=== PATIENT | male | born 1985 | race Caucasian/White ===

== ENCOUNTER 2020-11-29 13:08 | Outpatient (REF) | payer OTHER, SELFPAY ==
[2020-11-30 07:44] LABS: SARS COV2 PCR INHOUSE POSITIVE (Negative)
== END 2020-11-29 13:09 | disposition home or self-care (01) ==
LOC: HO.LAB 13:08
PROVIDERS: Visit Provider Internal Medicine
DX: Z20.822 Contact with and (suspected) exposure to COVID-19 (principal)
CPT/HCPCS: C9803; U0003

== ENCOUNTER 2022-04-29 19:52 | Emergency (ER) | payer OTHER, SELFPAY ==
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
[2022-04-29 20:08] VITALS: BP 137/53; BP 137/83; PULSE 81; RESP 16; TEMP 37; O2SAT 99; BMI 28.7
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
[2022-04-29 23:50] VITALS: BP 139/88; PULSE 92; RESP 20; TEMP 37
[2022-04-30] MEDS: oxyCODONE HCl Immed Release 5 MG TABLET 10 MG PO (00:29)
== END 2022-04-30 00:41 | disposition home or self-care (01) ==
PROVIDERS: Emergency Provider Emergency Medicine
DX: S59.911A Unspecified injury of right forearm, initial encounter (principal); M79.631 Pain in right forearm; V19.40XA Pedal cycle driver injured in collision with unspecified motor vehicles in traffic accident, initial encounter; Y93.9 Activity, unspecified; Y92.9 Unspecified place or not applicable; Y99.9 Unspecified external cause status; Z79.899 Other long term (current) drug therapy
CPT/HCPCS: 29105; 73030; 73080; 73100; 99283

== ENCOUNTER 2024-03-21 10:29 | Outpatient (REF) | payer MEDICAID, SELFPAY ==
[2024-03-21 11:24] LABS: MANUAL DIFF FLAG NO
[2024-03-21 11:27] LABS: Basophils Percent Auto 0.6 % (0-2); Eosinophils Absolute Auto 0.1 X10*3/uL (0.0-0.4); Eosinophils Percent Auto 0.9 % (0-4); Hematocrit 42.7 % (42.0-52.0); Hemoglobin 14.6 g/dl (14.0-18.0); Imm Gran Abs Auto 0.03 X10*3/uL (0.00-0.03); Imm Gran Pct Auto 0.5 % (0.0-0.4); Lymphocytes Absolute Auto 1.6 X10*3/uL (1.2-4.9); Lymphocytes Percent Auto 24.2 % (20-40); Mean Corpuscular HGB Conc 34.2 g/dl (31.0-36.0); Mean Corpuscular Hemoglobin 30.2 pg (27.0-33.0); Mean Corpuscular Volume 88.2 fL (80.0-98.0); Mean Platelet Volume 10.4 fL (9.4-12.4); Monocytes Absolute Auto 0.5 X10*3/uL (0.1-1.2); Monocytes Percent Auto 7.6 % (2-11); Neutrophils Absolute Auto 4.3 x10*3/uL (2.0-8.3); Neutrophils Percent Auto 66.2 % (45-73); Platelet Count 272 X10*3/uL (160-400); Red Blood Count 4.84 X10*6/uL (4.60-5.80); Red Cell Distribution Width 12.7 % (11.0-16.0); White Blood Count 6.5 X10*3/uL (4.8-10.8)
[2024-03-21 11:35] LABS: Estimated Average Glucose 111 mg/dL; Hemoglobin A1c % 5.5 % (<6.0)
[2024-03-21 11:55] LABS: Alanine Aminotransferase 73 U/L (0-40); Albumin Level 4.5 g/dL (3.5-5.0); Alkaline Phosphatase 70 U/L (39-117); Anion Gap 12 (12-20); Aspartate Amino Transferase 51 U/L (5-37); Bilirubin Total 0.4 mg/dL (0.0-1.0); Blood Urea Nitrogen 14 mg/dL (9-16); Calcium 9.3 mg/dL (8.4-10.2); Carbon Dioxide 22 mmol/L (22-29); Chloride 108 mmol/L (96-108); Estimated Glomerular Filt Rate > 60; Glucose Random 105 mg/dL (60-115); Potassium 4.2 mmol/L (3.3-5.1); Sodium 138 mmol/L (135-145); Total Protein 7.6 g/dL (6.5-8.0)
[2024-03-21 12:12] LABS: TSH reflex Free T4 1.06 uIU/mL (0.32-4.0)
[2024-03-21 12:19] LABS: Vitamin B12 367 pg/mL (200-900)
[2024-03-22 08:29] LABS: Syphilis Screen Nonreactive (Nonreactive)
[2024-03-22 08:46] LABS: HBS Num1 12.54 mIU/mL (0-7.99); HBc Num1 0.14 S/CO (0.00-0.79); HBsAGNum1 0.39 S/CO (0.00-0.99); HIV AB/AG Nonreactive (Nonreactive); HIV Num 1 0.09 S/CO (0.00-0.99); Hepatitis B Core Antibody Nonreactive (Nonreactive); Hepatitis B Surface Antigen Negative (Negative); ~HepC Num1 12.26 S/CO (0.00-0.79); ~Hepatitis B Surface Antibody REACTIVE (Nonreactive); ~Hepatitis C Antibody Reactive (Nonreactive)
[2024-03-24 05:54] LABS: TS Negative Control Passed; TS Panel A 0; TS Panel B 1; TS Positive Control Passed; TSpotTB Negative (Negative)
[2024-03-29 11:54] LABS: HCV Log PCR <1.18 NOT DETECTED Log IU/mL (NOT DETECTED); HepC Viral Load <15 NOT DETECTED IU/mL (NOT DETECTED)
== END 2024-03-21 10:30 | disposition home or self-care (01) ==
LOC: HO.HHCL 10:29
PROVIDERS: Visit Provider Emergency Medicine
DX: R76.8 Other specified abnormal immunological findings in serum (principal); Z13.1 Encounter for screening for diabetes mellitus
CPT/HCPCS: 36415; 80053; 82607; 83036; 84443; 85025; 86481; 86704; 86706; 86780; 86803; 87338; 87340; 87389; 87522

== ENCOUNTER 2024-10-11 10:42 | Outpatient (REF) | payer MEDICAID, SELFPAY ==
--- OUTSIDE RECORDS SUMMARY | 2024-10-11 12:32 | XMS_ITS | Encounter Summary ---
Author Organization [email or web address] Address [address] [place] [address] Care Team Providers Care Wastewater Analyst Lab Analyst Name Role Phone Unavailable Primary Care Provider Unavailabl e Reason for Visit * Reason Onset Date Comments Chart prep 10/09/2024 Encounter Details Date Type Department Care Team (Late st Contact Info) Description 10/09/2024 Telephone [facility] [address] [place] [address] Sherin Baxter MA Chart prep Social History Tobacco Use Types Packs/Day Years Used Date Smoking Tobacco: Never Smokeless Tobacco: Never Housing Stability Answer Date Recorded What is your housing situation today? I have bishnu veloz 09/28/[address] you li ve. Do you have problems with any of the following? None of the above 09/28/2024 Food Insecurity Answer Date Recorded Within the past 12 months, y ou worried that your food would run out before you got money to buy more: Never True 09/28/2024 Within the past 12 months,th e food you bought just didn't last and you didn't have enough money to get more: Never True Transportation Answer Date Recorded In the past 12 months, has l ack of transportation kept you from medical appts, meetings, work or from getting things needed for daily living? No 09/28/2024 Utilities Answer Date Recorded In the past 12 months, has t he electric, gas, oil or water company threatened to shut off services in your home? No 09/28/2024 Internet Access Answer Date Recorded Internet Access Q1 Yes 09/28/2024 Internet Access Q2 Not on file 09/28/2024 Sex and Gender Information Value Date Recorded Sex Assigned at Male 06/29/2022 10:35 AM EDT Legal Sex Male 10:35 AM EDT Gender Identity Choose not to disclose 10:35 AM EDT Sexual Orientation Choose not to disclose 2021 10:35 AM EDT documented as of this encounter Miscellaneous Notes * Telephone Encounter - Sherin Baxter MA - 10/09/2024 3:37 PM EST Chart Prep Labs: done Images: done Vaccines due: yes Referrals: N/A Screenings: Up to date Overdue care gaps: PHQ-9 documented in this encounter Plan of Treatment Upcoming Encounters Date Type Department Care Team (Late st Contact Info) Description 11/29/2024 3:15 PM EDT Office Visit [facility] [address] [place], [place] [phone] Bernadette Noguera MD [address] [place], [place] [phone] documented as of this encounter Visit Diagnoses Not on filedocumented in this encounter
--- OUTSIDE RECORDS SUMMARY | 2024-10-11 12:32 | XMS_ITS | Encounter Summary ---
Author Organization [employer] Address [address] [place] [address] Care Team Providers Care Aluminum Siding Mechanic Name Role Phone Bernadette Noguera MD Primary Care Provider + Encounter Details Date Type Department Care Team (Latest Contact Info) Description 10/11/2024 Travel Social History Tobacco Use Types Packs/Day Years Used Date Smoking Tobacco: Never Smokeless Tobacco: Never Housing Stability Answer Date Recorded What is your housing situation today? I have bishnurian veloz 09/28/[address] you [...] t he electric, gas, oil or water [employer] threatened to shut off services in your home? No 09/28/2024 Depression Answer Date Recorded Patient Health Questionnaire-2 Score 0 10/11/2024 Internet Access Answer Date Recorded Internet Access Q1 Yes 09/28/2024 Internet Access Q2 Not on file 09/28/2024 Sex and Gender Information Value Date Recorded Sex Assigned at Male 06/29/2022 10:35 AM EDT Legal Sex Male 10:35 AM EDT Gender Identity Choose not to disclose 10:35 AM EDT Sexual Orientation Choose not to disclose 2021 10:35 AM EDT documented as of this encounter Plan of Treatment Upcoming Encounters Date Type Department Care Team (Late st Contact Info) Description 11/29/2024 3:15 PM EDT Office Visit [facility] [address] [place] [address] Bernadette Noguera MD [address] [place], [place] [phone] documented as of this encounter Visit Diagnoses Not on filedocumented in this encounter Care Teams Aluminum Siding Mechanic Relationship Specialty Start Date End Date Bernadette Noguera MD [address] [place] [phone] PCP - General Internal Medicine 10/11/24 documented as of this encounter
--- OUTSIDE RECORDS SUMMARY | 2024-10-11 12:32 | XMS_ITS | Encounter Summary ---
Author Organization [employer] Address [address] [place] [address] Care Team Providers Care Shoemaker Apprentice Name Role Phone Bernadette Noguera MD Primary Care Provider + Reason for Visit * Reason Comments new patient appointment Encounter Details Date Type Department Care Team (Late st Contact Info) Description 10/11/2024 9:30 AM EST Office Visit [facility] [address] [place], [place] [phone] Bernadette Noguera MD [address] [place], [place] [phone] History of hepatitis C virus infection (Primary Dx); Uncomplicated opioid dependence (CMS/HCC); Elevated blood pressure reading; Class 1 obesity due to excess calories without serious comorbidity with body mass index (BMI) of 34.0 to 34.9 in adult; Dietary counseling; Exercise counseling Social History Tobacco Use Types Packs/Day Years Used Date Smoking Tobacco: Never Smokeless Tobacco: Never Housing Stability Answer Date Recorded What is your housing situation today? I have bishnu roselia 09/28/[address] you li [...] the past 12 months, has t he [employer], [employer], oil or water [employer] threatened to shut off services in your [...] AM EDT documented as of this encounter Last Filed Vital Signs Vital Sign Reading Time Taken Comments Blood Pressure 142/80 10/11/2024 9:38 AM EST Pulse 80 10/11/2024 9:38 AM EST Temperature 36.3 ??C (97.4 ??F) 10/11/2024 9:38 AM ES T Respiratory Rate 18 10/11/2024 9:38 AM EST Oxygen Saturation - - Inhaled Oxygen Concentration - - Weight 106 kg (234 lb 4 oz) 10/11/2024 9:[address] Height 176.2 cm (5' 9.38 ) 10/11/2024 9:38 AM ES T Body Mass Index 34.21 10/11/2024 9:38 AM EST documented in this encounter Plan of Treatment Upcoming Encounters Date Type Department Care Team (Late st Contact Info) Description 11/29/2024 3:15 PM EDT Office Visit [facility] [address] [place] [address] Bernadette Noguera MD [address] [place] [address] Scheduled Orders Name Type Priority Associated Diagnoses Orde r Schedule Hepatitis C Viral RNA, Quantitative, Real-Time PCR Lab Routine History of hepatitis C virus infection Expected: 10/11/2024 (Approximate), Expires: 10/11/2025 T-SPOT??.TB Lab Routine Uncomplicated opioid dependence (CMS/HCC) Expected: 10/11/2024 (Approximate), Expires: 10/11/2025 Hemoglobin A1c Lab Routine Class 1 obesity due to excess calories without serious comorbidity with body mass index (BMI) of 34.0 to 34.9 in adult Expected: 10/11/2024 (Approximate), Expires: 10/11/2025 Lipid Panel with Reflex to Direct LDL Lab Routine Class 1 obesity due to excess calories without serious comorbidity with body mass index (BMI) of 34.0 to 34.9 in adult Expected: 10/11/2024 (Approximate), Expires: 10/11/2025 documented as of this encounter Visit Diagnoses Diagnosis History of hepatitis C virus infection- Primary Uncomplicated opioid dependence (CMS/HCC) Elevated blood pressure reading Elevated blood pressure reading without diagnosis of hypertension Class 1 obesity due to excess calories without serious comorbidity with body mass index (BMI) of 34.0 to 34.9 in adult Dietary counseling Dietary surveillance and counseling Exercise counseling documented in this encounter Care Teams Shoemaker Apprentice Relationship Specialty Start Date End Date Bernadette Noguera MD [address] [place] [phone] PCP - General Internal Medicine 10/11/24 documented as of this encounter
--- OUTSIDE RECORDS SUMMARY | 2024-10-11 12:32 | XMS_ITS | Encounter Summary ---
Author Organization [employer] Address [address] [facility] 7t [place] [address] Care Team Providers Care Data Control Clerk Supervisor Name Role Phone Unavailable Primary Care Provider Unavailabl e Reason for Visit * Reason Comments Pre-visit Planning SDOH screening negat alissa and tobacco screening negative Encounter Details Date Type Department Care Team (Late st Contact Info) Description 09/28/2024 Patient Outreach [facility] [address] [place] [address] Bernadette Noguera MD [address] [place] [address] Pre-visit Planning (SDOH screening negative and tobacco screening negative) Social History Tobacco Use Types Packs/Day Years [...] AM EDT documented as of this encounter Progress Notes * Lula Dhaliwal - 09/28/2024 11:35 AM EST CC Lula placed successful outbound call to patient for pre-visit planning. Patient name and confirmed. Patient confirms appt date and time, and has transportation. Biggest concern for appointment at this time is none Patient advised to bring to appointment a photo id and insurance card. Appropriate screenings completed in anticipation of appointment. documented in this encounter Plan of Treatment Upcoming Encounters Date Type Department Care Team (Late st Contact Info) Description 11/29/2024 3:15 PM EDT Office Visit [facility] [address] [place] [address] Bernadette Noguera MD [address] [place] [address] documented as of this encounter Visit Diagnoses Not on filedocumented in this encounter
--- OUTSIDE RECORDS SUMMARY | 2024-10-11 12:32 | XMS_ITS | Encounter Summary ---
Author Organization [employer] Address 75 [facility] 7t [place] [address] Care Team Providers Care Inspector Multifocal Lens Name Role Phone Bernadette Noguera MD Primary Care Provider + Reason for Visit * Reason Comments Med Change Request Encounter Details Date Type Department Care Team (Late st Contact Info) Description 03/21/2024 Refill [facility] [address] [place] [address] [phone] Gerard Spence MD [address] [place], [place] [phone] Social History Tobacco Use Types Packs/Day Years Used Date Smoking Tobacco: Never Smokeless Tobacco: Never Sex and Gender Information Value Date Recorded Sex Assigned at Male 06/29/2022 10:35 AM EDT Legal Sex Male 10:35 AM EDT Gender Identity Choose not to disclose 10:35 AM EDT Sexual Orientation Choose not to disclose 2021 10:35 AM EDT documented as of this encounter Miscellaneous Notes * Telephone Encounter - Coni Sharpe RN - 03/23/2024 10:39 AM EDT Discontinued by Provider- sent to [facility] instead documented in this encounter Plan of Treatment Upcoming Encounters Date Type Department Care Team (Late st Contact Info) Description 11/29/2024 3:15 PM EDT Office Visit [facility] [address] [place] [address] [phone] Bernadette Noguera MD [address] [place], [place] [phone] documented as of this encounter Visit Diagnoses Not on filedocumented in this encounter Care Teams Inspector Multifocal Lens Relationship Specialty Start Date End Date Bernadette Noguera MD [address] [place] [phone] PCP - General Internal Medicine 10/11/24 documented as of this encounter
--- OUTSIDE RECORDS SUMMARY | 2024-10-11 12:32 | XMS_ITS | Clinical Summary ---
Author Organization [facility] Address [address] [place] [address] Phone Care Team Providers Care Pca Name Role Phone Physician, No Pcp Primary Care Provider Unavaila ble Allergies No known active allergies Encounters Date Type Department Care Team Description 08/27/2024 3:36 PM EST - 08/27/2024 7:04 PM EST Emergency [facility] Emergency [address] [place] [address] Discharge Disposition: Left Against Medical Advice from Last 3 Months Medical History Medical History Date Comments No known health problems Acute hepatitis C Social History Tobacco Use Types Packs/Day Years Used Date Smoking Tobacco: Never Smokeless Tobacco: Never Tobacco Cessation:Counseling Given: Not Answered Alcohol Use Standard Drinks/Week Comments Not Currently 0 (1 standard drink = 0.6 oz pur e alcohol) Sex and Gender Information Value Date Recorded Sex Assigned at Not on file Legal Sex Male 2:25 AM EST Gender Identity Not on file Sexual Orientation Not on file Obstetrics History Last Filed Vital Signs Vital Sign Reading Time Taken Comments Blood Pressure 145/102 08/27/2024 3:45 PM EST Pulse 102 08/27/2024 3:45 PM EST Temperature 37.1 ??C (98.7 ??F) 08/27/2024 3:45 PM ES T Respiratory Rate 18 08/27/2024 3:45 PM EST Oxygen Saturation 99% 08/27/2024 3:45 PM EST Inhaled Oxygen Concentration - - Weight 99.8 kg (220 lb) 08/27/2024 3:45 PM EST Height 180.3 cm (5' 11 ) 08/27/2024 3:45 PM EST Body Mass Index 30.68 08/27/2024 3:45 PM EST Plan of Treatment Health Maintenance Due Date Last Done Comments DTaP,Tdap,and Td Vaccines (1 - Tdap) 2005 COVID-19 Vaccine ( season) 2024 Influenza Vaccine (#1) 2024 MMR Vaccines Aged Out 10/04/2016 No longer eligi ble based on patient's age to complete this topic Pneumococcal Vaccine: Pediatrics (0 to 5 Years) and At-Risk Patients (6 to 64 Years) Aged Out 12/14/2016 No longer eligible based on patient's age to complete this topic Hepatitis A Vaccines Aged Out 04/02/2017, 10/04/2016, 05/11/2015, Additional history exists No longer eligible based on patient's age to complete this topic Hepatitis B Vaccines Completed 04/02/2017, 11/01/2016, 10/04/2016, Additional history exists HIB Vaccines Aged Out No longer eligi ble based on patient's age to complete this topic HPV Vaccines Aged Out No longer eligi ble based on patient's age to complete this topic IPV Vaccines Aged Out No longer eligi ble based on patient's age to complete this topic Meningococcal ACWY Vaccine Aged Out N o longer eligible based on patient's age to complete this topic Meningococcal B Vacine Aged Out No lo nger eligible based on patient's age to complete this topic RSV Immunization Patients Under 20 months Aged Out No longer eligible based on patient's age to complete this topic Varicella Vaccines Aged Out No longer eligible based on patient's age to complete this topic Procedures Procedure Name Priority Date/Time Associated Diagnosis Comments CBC WITH AUTO DIFFERENTIAL STAT 08/27/2024 5:21 PM EST COMPREHENSIVE METABOLIC PANEL STAT 08/27/2024 5:21 PM EST CBC AND DIFFERENTIAL STAT 08/27/2024 5:21 PM EST from Last 3 Months Results * (ABNORMAL) CBC auto differential (08/27/2024 5:21 PM EST) WBC 15.5(H) 4.8 - 10.8 K/[facility] LAB HEMETOLOGY METHOD 08/27/2024 5:44 PM EST [facility] RBC 4.60 4.50 - 5.50 M/[facility] LAB HEMETOLOGY METHOD 08/27/2024 5:44 PM [facility] Hemoglobin 13.5 13.5 - 17.5 g/dL LAB HEMETOLOGY METHOD 08/27/2024 5:44 PM [facility] Hematocrit 40.6(L) 42.0 - 54.0 % LAB HEMETOLOGY METHOD 08/27/2024 5:44 PM [facility] MCV 89.2 79.0 - 98.0 FL LAB HEMETOLOGY METHOD 08/27/2024 5:44 PM [facility] MCH 29.7 27.0 - 32.0 pcg LAB HEMETOLOGY METHOD 08/27/2024 5:44 PM [facility] MCHC 33.3 32.0 - 37.0 g/dL LAB HEMETOLOGY METHOD 08/27/2024 5:44 PM [facility] RDW 13.2 11.0 - 15.0 % LAB HEMETOLOGY METHOD 08/27/2024 5:44 PM [facility] Platelets 379 130 - 400 K/mcL LAB HEMETOLOGY METHOD 08/27/2024 5:44 PM [facility] MPV 9.2 7.0 - 11.0 FL LAB HEMETOLOGY METHOD 08/27/2024 5:44 PM [facility] NRBC 0.0 <1.0 % LAB HEMETOLOGY METHOD 08/27/2024 5:44 PM [facility] NRBC Absolute 0.00 <0.10 K/mcL LAB HEMETOLOGY METHOD 08/27/2024 5:44 PM [facility] Neutrophils Relative 79.6 % LAB HEMETOLOGY METHOD 08/27/2024 5:44 PM [facility] Lymphocytes Relative 12.7 % LAB HEMETOLOGY METHOD 08/27/2024 5:44 PM [facility] Monocytes Relative 5.8 % LAB HEMETOLOGY METHOD 08/27/2024 5:44 PM EST [facility] Eosinophils Relative 0.5 % LAB HEMETOLOGY METHOD 08/27/2024 5:44 PM EST [facility] Basophils Relative 0.4 % LAB HEMETOLOGY METHOD 08/27/2024 5:44 PM [facility] Immature Granulocytes Relative 1.0 % LAB HEMETOLOGY METHOD 08/27/2024 5:44 PM EST [facility] Neutrophils Absolute 12.31(H) 1.50 - 7.00 K/mcL LAB HEMETOLOGY METHOD 08/27/2024 5:44 PM EST [facility] Lymphocytes Absolute 1.97 1.00 - 5.00 K/mcL LAB HEMETOLOGY METHOD 08/27/2024 5:44 PM [facility] Monocytes Absolute 0.90 0.20 - 1.00 K/mcL LAB HEMETOLOGY METHOD 08/27/2024 5:44 PM EST [facility] Eosinophils Absolute 0.07 0.00 - 0.50 K/mcL LAB HEMETOLOGY METHOD 08/27/2024 5:44 PM EST [facility] Basophils Absolute 0.06 0.00 - 0.20 K/mcL LAB HEMETOLOGY METHOD 08/27/2024 5:44 PM [facility] Immature Granulocytes Absolute 0.15(H) 0.00 - 0.03 K/mcL LAB HEMETOLOGY METHOD 08/27/2024 5:44 PM [facility] Blood Venous blood specimen / Unknown Venipuncture / Unknown 08/27/2024 5:21 PM EST 08/27/2024 5:36 PM EST us Joan Cohen DO LAB BLOOD ORDERABLES Milli l Result [facility] [address] [place] [address], * (ABNORMAL) Comprehensive metabolic panel (08/27/2024 5:21 PM EST) Sodium 135 133 - 145 mmol/L LAB CHEMISTRY METHOD 08/27/2024 6:08 PM [facility] Potassium 4.6 3.5 - 5.5 mmol/L LAB CHEMISTRY METHOD 08/27/2024 6:08 PM [facility] Chloride 103 96 - 110 mmol/L LAB CHEMISTRY METHOD 08/27/2024 6:08 PM [facility] CO2 30 21 - 32 mmol/L LAB CHEMISTRY METHOD 08/27/2024 6:08 PM [facility] Anion Gap 2(L) 3 - 11 LAB CHEMISTRY METHOD 08/27/2024 6:08 PM [facility] Glucose 97 70 - 100 mg/dL LAB CHEMISTRY METHOD 08/27/2024 6:08 PM [facility] BUN 13 5 - 25 mg/dL LAB CHEMISTRY METHOD 08/27/2024 6:08 PM [facility] Creatinine 0.89 0.70 - 1.30 mg/dL LAB CHEMISTRY METHOD 08/27/2024 6:08 PM [facility] eGFR 112 >=60 mL/min/1. 73m2 LAB CHEMISTRY METHOD 08/27/2024 6:08 PM [facility] Comment:Calculation based on the??Chronic Kidney Disease Epidemiology Collaboration (CKD-EPI) equation refit??without adjustment for race. BUN/Creatinine Ratio 14.6 LAB CHEMISTRY METHOD 08/27/2024 6:08 PM [facility] Calcium 9.2 8.5 - 10.5 mg/dL LAB CHEMISTRY METHOD 08/27/2024 6:08 PM [facility] AST (SGOT) 77(H) 10 - 42 unit/L LAB CHEMISTRY METHOD 08/27/2024 6:08 PM [facility] ALT (SGPT) 49 10 - 60 unit/L LAB CHEMISTRY METHOD 08/27/2024 6:08 PM EST [facility] Alkaline Phosphatase 68 42 - 121 unit/L LAB CHEMISTRY METHOD 08/27/2024 6:08 PM [facility] Total Protein 7.3 6.0 - 8.0 g/dL LAB CHEMISTRY METHOD 08/27/2024 6:08 PM EST [facility] Albumin 3.5 3.2 - 5.0 g/dL LAB CHEMISTRY METHOD 08/27/2024 6:08 PM [facility] Total Bilirubin 0.4 0.0 - 1.4 mg/dL LAB CHEMISTRY METHOD 08/27/2024 6:08 PM [facility] Blood Venous blood specimen / Unknown Venipuncture / Unknown 08/27/2024 5:21 PM EST 08/27/2024 5:36 PM EST us Sukhjinder Frederick Cohen DO LAB BLOOD ORDERABLES Milli l Result [facility] [address] [place] [address], [place] [phone] from Last 3 Months Care Teams Pca Relationship Specialty Start Date End Date Physician, No Pcp PCP - General 08/27/24
--- OUTSIDE RECORDS SUMMARY | 2024-10-11 12:32 | XMS_ITS | Clinical Summary ---
Author Organization [employer] Address 75 [facility] 7t [place] [address] Care Team Providers Care Fax Machine Operator Name Role Phone Bernadette Noguera MD Primary Care Provider + Allergies No known active allergies Medications Blood Pressure kit 1 each 2 times daily. 1 kit 4 03/22/20 25 Active Blood Pressure kit 1 each 2 times daily. 1 kit 5 10/11/19 26 Active Blood Pressure kit 1 each 2 times daily. 1 kit 4 10/11/19 25 Discontinued(Re order (will not trigger notification to Pharmacy)) Active Problems Problem Noted Date Diagnosed Date History of hepatitis C virus infection Elevated blood pressure reading 10/11/2024 Uncomplicated opioid dependence 10/11/2024 Class 1 obesity due to exces s calories without serious comorbidity with body mass index (BMI) of 34.0 to 34.9 in adult 10/11/2024 Hepatitis C antibody test positive 03/21/2024 History of intravenous drug use 03/21/2024 Encounters Date Type Department Care Team Description 10/11/2024 9:30 AM EST Office Visit [facility] [address] [place] [phone] Bernadette Noguera MD History of hepatitis C virus infection (Primary Dx); Uncomplicated opioid dependence (CMS/HCC); Elevated blood pressure reading; Class 1 obesity due to excess calories without serious comorbidity with body mass index (BMI) of 34.0 to 34.9 in adult; Dietary counseling; Exercise counseling 10/11/2024 Travel 10/10/[address] [facility] [address] [place] [phone] Yonas Le MD 10/09/[address] [facility] [address] [place] [phone] Sherin Baxter MA Chart prep 09/28/2024 Patient Outreach [facility] [address] [place] [address] Bernadette Noguera MD Pre-visit Planning (SDOH screening negative and tobacco screening negative) 08/21/[address] [facility] [address] [place] [address] Bernadette Noguera MD New pt appt from Last 3 Months Social History Tobacco Use Types Packs/Day Years Used Date Smoking Tobacco: Never Smokeless Tobacco: Never Tobacco Cessation:Counseling Given: Not Answered Housing Stability Answer Date Recorded What is [...] not to disclose 2021 10:35 AM EDT Last Filed Vital Signs Vital Sign Reading Time Taken Comments Blood Pressure 142/80 10/11/2024 9:38 AM EST Pulse 80 10/11/2024 9:38 AM EST Temperature 36.3 ??C (97.4 ??F) 10/11/2024 9:38 AM ES T Respiratory Rate 18 10/11/2024 9:38 AM EST Oxygen Saturation 98% 03/21/2024 9:17 AM EDT Inhaled Oxygen Concentration - - Weight 106 kg (234 lb 4 oz) 10/11/2024 9:[address] Height 176.2 cm (5' 9.38 ) 10/11/2024 9:38 AM ES T Body Mass Index 34.21 10/11/2024 9:38 AM EST Plan of Treatment Upcoming Encounters Date Type Department Care Team (Late st Contact Info) Description 11/29/2024 3:15 PM EDT Office Visit [facility] [address] [place], [place] [phone] Bernadette Noguera MD [address] [place], [place] [phone] Health Maintenance Due Date Last Done Comments Lipid Panel 1986 Family Planning (PISQ) 2001 DTaP/Tdap/Td Vaccines (1 - Tdap) 2005 Hepatitis A Vaccines (1 of 2 - Risk 2-dose series) 2005 Hepatitis B Vaccines (1 of 3 - 19+ 3-dose series) 2005 COVID-19 Vaccine ( - 2023-2 5 season) 2024 Influenza Vaccine (#1) 2024 SDOH Screening 09/28/2025 09/28/2024 Alcohol/Substance Use Screening 10/11/2025 10/11/2024 Depression Screening 10/11/2025 10/11/2024, 10/11/2024 Tobacco Screening 10/11/2025 10/11/2024 Zoster Vaccines (1 of 2) 2036 RSV Patients and Patients Aged 60 years or older (1 - 1-dose 75+ series) 2061 HIV Screening Completed 03/21/2024 HIB Vaccines Aged Out No longer eligi ble based on patient's age to complete this topic HPV Vaccines Aged Out No longer eligi ble based on patient's age to complete this topic IPV Vaccines Aged Out No longer eligi ble based on patient's age to complete this topic Meningococcal Vaccine Aged Out No latanya pavithra eligible based on patient's age to complete this topic Pneumococcal Vaccine: Pediatrics (0 to 5 Years) and At-Risk Patients (6 to 49) Years) Aged Out No longer eligible b ased on patient's age to complete this topic RSV under 20 months Aged Out No longe r eligible based on patient's age to complete this topic Rotavirus Vaccines Aged Out No longer eligible based on patient's age to complete this topic Procedures Procedure Name Priority Date/Time Associated Diagnosis Comments HIV 1/2 ANTIGEN/ANTIBODY, FOURTH GENERATION W/RFL Routine 03/21/2024 10:45 AM EDT Hepatitis C antibody test positive from Last 3 Months or Most Recently Relevant to Health Maintenance Results * HIV-1/2 Antigen and Antibodies, Fourth Generation, with Reflexes (03/21/2024 10:45 AM EDT) HIV AB/AG Nonreactive Nonreactive [facility] Comment:HIV-1 p24 Ag and/or HIV-1/HIV-2 Ab not detected.A test result that is nonreactive does not exclude thepossibility of exposure to or infection with HIV-1 and/orHIV-2. Nonreactive results in this assay for individualswith prior exposure to HIV-1 and/or HIV-2 may be due toantigen and antibody levels that are below the limit ofdetection of this assay.The [employer] HIV Ag/Ab Combo assay result andsupplemental assay results should be interpreted inconjunction with the patient's clinical presentation,history and other laboratory results. If the results areinconsistent with clinical evidence, additional testing issuggested to confirm the result. Blood Venous blood specimen / Unknown 03/21/2024 10:45 AM EDT 03/21/2024 11:20 AM EDT us Gerard Spence MD LAB BLOOD ORDERABLES Final Resul t [facility] [address] [place] [phone] from Last 3 Months or Most Recently Relevant to Health Maintenance Insurance [facility] C3 Care Teams Fax Machine Operator Relationship Specialty Start Date End Date Bernadette Noguera MD [address] [place] [phone] PCP - General Internal Medicine 10/11/24
--- OUTSIDE RECORDS SUMMARY | 2024-10-11 12:32 | XMS_ITS | Encounter Summary ---
Author Organization [facility] Address 75 [facility] 7t [place] [address] Care Team Providers Care Colorist Name Role Phone Bernadette Noguera MD Primary Care Provider + Encounter Details Date Type Department Care Team (Late st Contact Info) Description 03/22/2024 Orders Only [facility] [address] [place] [address] [phone] Gerard Spence MD [address] [place] [address] [phone] Social History Tobacco Use Types Packs/Day Years [...] Description 11/29/2024 3:15 PM EDT Office Visit [facility] [address] [place] [address] [phone] Bernadette Noguera MD [address] [place] [address] [phone] documented as of this encounter Procedures Procedure Name Priority Date/Time Associated Diagnosis Comments SYPHILIS SCREEN Routine 03/21/2024 10:45 AM EDT HEPATITIS C VIRAL RNA, QUANTITATIVE, REAL-TIME PCR Routine 03/21/2024 10:45 AM EDT documented in this encounter Results * Hepatitis C Viral RNA, Quantitative, Real-Time PCR (03/21/2024 10:45 AM EDT) Hepatitis C Viral Load <15 NOT DETECTED NOT DETECTED IU/mL [facility] HCV Log PCR <1.18 NOT DETECTED NOT DETECTED Log IU/mL [facility] Comment:For additional infor erick, please refer tohttp://education.Venturocket/faq/NMC77q5(This link is being provided for informational/educational purposes only.)THIS TEST WAS PERFORMED AT:[employer] [place] [phone] BETHEA MD 03/21/2024 10:4 5 AM EDT 03/21/2024 11:20 AM EDT us Gerard Spence MD LAB BLOOD ORDERABLES Final Resul t Performing Organization Address [facility] Co de Phone Number [facility] [address] [place] [phone] * Syphilis Screen (03/21/2024 10:45 AM EDT) Syphilis Screen Nonreactive Nonreactive [facility] 03/21/2024 10:4 5 AM EDT 03/21/2024 11:20 AM EDT us Gerard Spence MD LAB BLOOD ORDERABLES Final Resul t Performing Organization Address [facility] de Phone Number [facility] [address] [place] [phone] documented in this encounter Visit Diagnoses Not on filedocumented in this encounter Care Teams Colorist Relationship Specialty Start Date End Date Bernadette Noguera MD [address] [place] [phone] PCP - General Internal Medicine 10/11/24 documented as of this encounter
--- OUTSIDE RECORDS SUMMARY | 2024-10-11 12:32 | XMS_ITS | Encounter Summary ---
Author Organization [facility] Address 75 [facility] 7t h Floor [place] [phone] Care Team Providers Care Butcher All Round Name Role Phone Bernadette Noguera MD Primary Care Provider + Encounter Details Date Type Department Care Team (Latest Contact Info) Description 05/07/2022 Abstract [facility] CONVERSIONS Dental, Provider, DDS Social History Tobacco Use Types Packs/Day Years Used Date Smoking Tobacco: Never Assessed Sex and Gender Information Value Date Recorded [...] 3:15 PM EDT Office Visit [facility] [address] [place] [address] Bernadette Noguera MD [address] [place] [address] documented as of this encounter Visit Diagnoses Not on filedocumented in this encounter Care Teams Butcher All Round Relationship Specialty Start Date End Date Bernadette Noguera MD [address] [place] [address] [phone] PCP - General Internal Medicine 10/11/24 documented as of this encounter
--- OUTSIDE RECORDS SUMMARY | 2024-10-11 12:32 | XMS_ITS | Encounter Summary ---
Author Organization [employer] Address [address] [facility] 7t [place] [address] Care Team Providers Care Superintendent Seed Mill Name Role Phone Unavailable Primary Care Provider Unavailabl e Encounter Details Date Type Department Care Team (Late st Contact Info) Description 10/10/2024 Telephone [facility] [address] [place], [place] [phone] Yonsa Le MD [address] [place], [place] [phone] Social History Tobacco Use Types Packs/Day Years [...] encounter Miscellaneous Notes * Telephone Encounter - Ciera Mortonan - 10/10/2024 11:43 AM EST Outgoing call to pt to advise no appts available until December or later times with Provider. Pt agreed to keep appt. * Telephone Encounter - Valeria Stevens - 10/10/2024 8:12 AM EST Pt walked in requesting if his appt time can be switched to a later time for 10/11/24. documented in this encounter Plan of Treatment Upcoming Encounters Date Type Department Care Team (Late st Contact Info) Description 11/29/2024 3:15 PM EDT Office Visit [facility] [address] [place] [address] Bernadette Noguera MD [address] [place] [address] documented as of this encounter Visit Diagnoses Not on filedocumented in this encounter
[2024-10-11 13:42] LABS: MANUAL DIFF FLAG NO
[2024-10-11 13:57] LABS: Basophils Absolute Auto 0.1 X10*3/uL (0.0-0.2); Basophils Percent Auto 0.9 % (0-2); Eosinophils Absolute Auto 0.2 X10*3/uL (0.0-0.4); Eosinophils Percent Auto 2.9 % (0-4); Hematocrit 42.2 % (42.0-52.0); Hemoglobin 14.3 g/dl (14.0-18.0); Imm Gran Abs Auto 0.02 X10*3/uL (0.00-0.03); Imm Gran Pct Auto 0.4 % (0.0-0.4); Lymphocytes Absolute Auto 1.9 X10*3/uL (1.2-4.9); Lymphocytes Percent Auto 34.3 % (20-40); Mean Corpuscular HGB Conc 33.9 g/dl (31.0-36.0); Mean Corpuscular Hemoglobin 29.6 pg (27.0-33.0); Mean Corpuscular Volume 87.4 fL (80.0-98.0); Mean Platelet Volume 10.4 fL (9.4-12.4); Monocytes Absolute Auto 0.5 X10*3/uL (0.1-1.2); Monocytes Percent Auto 9.7 % (2-11); Neutrophils Absolute Auto 2.8 x10*3/uL (2.0-8.3); Neutrophils Percent Auto 51.8 % (45-73); Platelet Count 262 X10*3/uL (160-400); Red Blood Count 4.83 X10*6/uL (4.60-5.80); White Blood Count 5.5 X10*3/uL (4.8-10.8)
[2024-10-11 14:16] LABS: Estimated Average Glucose 117 mg/dL; Hemoglobin A1c % 5.7 % (<6.0); Total Hemoglobin (HGBA1C) 3691.6295 umol/L
[2024-10-11 14:21] LABS: Cholesterol 265 mg/dL (<200); HDL Cholesterol 63 mg/dL (>40); LDL Cholesterol Calculated 165 mg/dL (<100); Triglycerides 186 mg/dL (<150)
[2024-10-11 14:34] LABS: Reflex LDLD? No
[2024-10-11 14:41] LABS: HBS Num1 11.22 mIU/mL (0-7.99); HBc Num1 0.09 S/CO (0.00-0.79); HBsAGNum1 0.34 S/CO (0.00-0.99); HIV AB/AG Nonreactive (Nonreactive); HIV Num 1 0.06 S/CO (0.00-0.99); Hepatitis B Core Antibody Nonreactive (Nonreactive); Hepatitis B Surface Antigen Negative (Negative); ~Hepatitis C Antibody Reactive (Nonreactive)
[2024-10-11 14:42] LABS: Alanine Aminotransferase 28 U/L (0-40); Albumin Level 4.1 g/dL (3.5-5.0); Alkaline Phosphatase 65 U/L (39-117); Anion Gap 11 (12-20); Aspartate Amino Transferase 28 U/L (5-37); Bilirubin Total 0.3 mg/dL (0.0-1.0); Blood Urea Nitrogen 12 mg/dL (9-16); Carbon Dioxide 23 mmol/L (22-29); Chloride 107 mmol/L (96-108); Estimated Glomerular Filt Rate > 60; Glucose Random 113 mg/dL (60-115); Potassium 4.3 mmol/L (3.3-5.1); Sodium 137 mmol/L (135-145); Total Protein 7.6 g/dL (6.5-8.0)
[2024-10-11 14:44] LABS: Vitamin B12 375 pg/mL (200-900)
[2024-10-11 14:48] LABS: TSH reflex Free T4 2.54 uIU/mL (0.32-4.0)
[2024-10-12 03:53] LABS: HBS Num2 11.34 mIU/mL (0-7.99); ~Hepatitis B Surface Antibody GRAYZONE (Nonreactive)
[2024-10-12 16:18] LABS: RPR Rapid Plasma Reagin NON-REACTIVE (NON-REACTIVE)
[2024-10-13 15:23] LABS: HCV Log PCR <1.18 NOT DETECTED Log IU/mL (NOT DETECTED); HepC Viral Load <15 NOT DETECTED IU/mL (NOT DETECTED)
[2024-10-14 13:18] LABS: TS Negative Control Passed; TS Panel A 3; TS Panel B 0; TS Positive Control Passed; TSpotTB Negative (Negative)
== END 2024-10-11 10:43 | disposition home or self-care (01) ==
LOC: HO.HHCL 10:42
PROVIDERS: Emergency Medicine; Visit Provider Internal Medicine
DX: R76.8 Other specified abnormal immunological findings in serum (principal); E66.811 Obesity, class 1; E66.09 Other obesity due to excess calories; Z68.34 Body mass index [BMI] 34.0-34.9, adult; Z86.19 Personal history of other infectious and parasitic diseases
CPT/HCPCS: 36415; 80053; 80061; 82607; 83036; 84443; 85025; 86481; 86592; 86704; 86706; 86803; 87340; 87389; 87522

== ENCOUNTER 2024-10-12 11:16 | Outpatient (REF) | payer MEDICAID, SELFPAY ==
--- OUTSIDE RECORDS SUMMARY | 2024-10-12 11:55 | XMS_ITS | Encounter Summary ---
Author Organization [employer] Address [address] [facility] 7t [place] [address] Care Team Providers Care Um Rn Name Role Phone Unavailable Primary Care Provider Unavailabl e Reason for Visit * Reason Comments Pre-visit Planning SDOH screening negat alissa and tobacco screening negative Encounter Details Date Type Department Care Team (Late st Contact Info) Description 09/28/2024 Patient Outreach [facility] MEDICINE [address] [place] [address] Bernadette Noguera MD [address] [place] [address] Pre-visit Planning (SDOH screening negative and tobacco [...] Care Team (Late st Contact Info) Description 10/12/2024 3:00 PM EST Office Visit [address] [address] Umm Vaughan RN 10/13/2024 2:45 PM EST Office Visit [address] [address] Moshe Dumont MD [address] [place] [phone] 11/29/2024 3:15 PM EDT Office Visit [address] [address] Bernadette Noguera MD [address] [place] [phone] documented as of this encounter Visit Diagnoses Not on filedocumented in this encounter
--- OUTSIDE RECORDS SUMMARY | 2024-10-12 11:55 | XMS_ITS | Encounter Summary ---
Author Organization [employer] Address [address] [facility] [address] 7[address] [place] [address] Care Team Providers Care Reed Worker Name Role Phone Unavailable Primary Care Provider Unavailabl e Encounter Details Date Type Department Care Team (Late st Contact Info) Description 10/10/2024 Telephone [facility] MEDICINE [address] [place], [place] [phone] Yonas Le MD [address] [place], [place] [phone] Social History Tobacco Use Types Packs/Day Years [...] pt to advise no appts available until May or later times with Provider. Pt agreed to keep appt. * Telephone Encounter - Valeria Stevens - 10/10/2024 8:12 AM EST Pt walked in requesting if his appt time can be switched to a later time for 10/11/24. documented in this encounter Plan of Treatment Upcoming Encounters Date Type Department Care Team (Late st Contact Info) Description 10/12/2024 3:00 PM EST Office Visit [address] [address] Umm Vaughan RN 10/13/2024 2:45 PM EST Office Visit [address] [address] Moshe Dumont MD [address] [place] [phone] 11/29/2024 3:15 PM EDT Office Visit [address] [address] Bernadette Noguera MD [address] [place] [phone] documented as of this encounter Visit Diagnoses Not on filedocumented in this encounter
--- OUTSIDE RECORDS SUMMARY | 2024-10-12 11:55 | XMS_ITS | Encounter Summary ---
Author Organization [employer] Address [address] [facility] [address] 7[address] [place] [address] Care Team Providers Care Wheel Presser Name Role Phone Bernadette Noguera MD Primary Care Provider + Reason for Visit * Reason Comments [facility] Encounter Details Date Type Department Care Team (Late st Contact Info) Description 10/11/2024 Patient Outreach [facility] MEDICINE [address] [place], [place] [phone] Amaury Corado Recovery Supports Social History Tobacco Use Types Packs/Day Years [...] as of this encounter Progress Notes * Amaury Mak - 10/11/2024 1:15 PM EST I met with Andrei today. Setting: by phone Recovery Wellness Goals worked on: Social Stability Action taken/next steps: Referred to medical or behavioral health professional and Offered person centered recovery support Additional comments: I contacted the patient, and Andrei informed me that they wish to join the program, we can schedule an appointment for October 12, 2024. Amaury Mak documented in this encounter Plan of Treatment Upcoming Encounters Date Type Department Care Team (Late st Contact Info) Description 10/12/2024 3:00 PM EST Office Visit [facility] MEDICINE [address] [place] [phone] Umm Vaughan RN 10/13/2024 2:45 PM EST Office Visit [facility] MEDICINE [address] [place] [phone] Moshe Dumont MD [address] [place] [phone] 11/29/2024 3:15 PM EDT Office Visit [address] [address] Bernadette Noguera MD [address] [place] [phone] documented as of this encounter Visit Diagnoses Not on filedocumented in this encounter Care Teams Wheel Presser Relationship Specialty Start Date End Date Bernadette Noguera MD [address] [place] [phone] PCP - General Internal Medicine 10/11/24 documented as of this encounter
--- OUTSIDE RECORDS SUMMARY | 2024-10-12 11:55 | XMS_ITS | Encounter Summary ---
Author Organization [employer] Address [address] [facility] 7t [place] [address] Care Team Providers Care Asset Card Clerk Name Role Phone Bernadette Noguera MD Primary Care Provider + Reason for Visit * Reason Comments new patient appointment Encounter Details Date Type Department Care Team (Late st Contact Info) Description 10/11/2024 9:30 AM EST Office Visit [facility] MEDICINE [address] [place], [place] [phone] Bernadette Noguera MD [address] [place], [place] [phone] History of hepatitis C virus infection (Primary [...] the past 12 months, has t he [employer], [employer], oil or water [email or web address] threatened to shut off services in your [...] 9:38 AM EST documented in this encounter Miscellaneous Notes * Assessment & Plan Note - Sudha Knight MA - 10/11/2024 12:40 PM EST Associated Problem(s): Class 1 obesity due to excess calories without serious comorbidity with bodymass index (BMI) of 34.0 to 34.9 in adult Discussed re weight reduction options including exercise, life style modifications, diet. Recommended to decrease soda and sugary beverage consumption, increase protein intake with meals (at least 1 portion of protein with each meal) to assist with satiety, increase dietary fiber Recommended at least 150 min/week of moderate intensity exercise. * Assessment & Plan Note - Sudha Knight MA - 10/11/2024 12:39 PM EST Associated Problem(s): Uncomplicated opioid dependence (CMS/HCC) Currently uses Oxycodone. We discussed on cutting down use. He agreed to be referred to coach, not ready to start Suboxone program. * Assessment & Plan Note - Sudha Knight MA - 10/11/2024 12:35 PM EST Associated Problem(s): History of hepatitis C virus infection Will repeat viral load due to patient's current risk factors. Advised to cut down on EtOH and rec substances. FU in 6 months. * Result Encounter Note - Bernadette Noguera MD - 10/11/2024 9:30 AM EST Today's lipase show hyperlipidemia, I will discuss plan of care with patient at next appointment. documented in this encounter Plan of Treatment Upcoming Encounters Date Type Department Care Team (Late st Contact Info) Description 10/12/2024 3:00 PM EST Office Visit [facility] MEDICINE [address] [place] [phone] Umm Vaughan RN 10/13/2024 2:45 PM EST Office Visit [facility] MEDICINE [address] [place] [address] Moshe Dumont MD [address] [place] [phone] 11/29/2024 3:15 PM EDT Office Visit [address] [address] Bernadette Noguera MD [address] [place] [phone] Scheduled Orders Name Type Priority Associated Diagnoses [...] Expires: 10/11/2025 documented as of this encounter Procedures Procedure Name Priority Date/Time Associated Diagnosis Comments LIPID PANEL WITH REFLEX TO DIRECT LDL Routine 10/11/2024 10:47 AM EST Class 1 obesity due to excess calories without serious comorbidity with body mass index (BMI) of 34.0 to 34.9 in adult documented in this encounter Results * (ABNORMAL) Lipid Panel with Reflex to Direct LDL (10/11/2024 10:47 AM EST) Triglycerides 186(H) <150 mg/dL [facility] Comment:Desirable Triglyceri de: less than 150 mg/dLBorderline High Triglyceride 150-199 mg/dLHigh Triglyceride: 200-499 mg/dLVery High Triglyceride: greater than or equal to 5OO mg/dL Cholesterol 265(H) <200 mg/dL [facility] Comment:Desirable Cholestero l: less than 200 mg/dLBorderline High Cholesterol: 200-239 mg/dLHigh Cholesterol: greater than 239 mg/dL LDL Cholesterol Calculated 165(H) <100 mg/dL [facility] Comment:Desirable LDL: less than 100 mg/dLNear Optimal/Above Optimal LDL: 110- 129 mg/dLBorderline High LDL: 130-159 mg/dLHigh LDL: 160-189 mg/dLVery High LDL: greater than or equal to 190 mg/dL HDL Cholesterol 63 >40 mg/dL [facility] Comment:Desirable HDL: great er than 40 mg/dL Note: This HDL assay may give artificially low results in patients with liver disease. Blood 10/11/2024 10:4 7 AM EST 10/11/2024 1:35 PM EST Bernadette Noguera MD LAB BLOOD ORDERABLES Fin al Result [facility] [address] [place] [phone] documented in this encounter Visit Diagnoses Diagnosis History of hepatitis C virus infection- Primary Uncomplicated opioid dependence (CMS/HCC) Elevated blood pressure reading Elevated blood pressure reading without diagnosis of hypertension Class 1 obesity due to excess calories without serious comorbidity with body mass index (BMI) of 34.0 to 34.9 in adult Dietary counseling Dietary surveillance and counseling Exercise counseling documented in this encounter Care Teams Asset Card Clerk Relationship Specialty Start Date End Date Bernadette Noguera MD [address] [place] [phone] PCP - General Internal Medicine 10/11/24 documented as of this encounter
--- OUTSIDE RECORDS SUMMARY | 2024-10-12 11:55 | XMS_ITS | Clinical Summary ---
Author Organization [facility] Address [address] [place] [address] Phone Care Team Providers Care Stacker Operator Name Role Phone Physician, No Pcp Primary Care Provider Unavaila ble Allergies No known active allergies Encounters Date Type Department Care Team Description 08/27/2024 3:36 PM EST - 08/27/2024 7:04 PM EST Emergency [facility] Emergency [address] [place] [address] Discharge Disposition: Left Against Medical [...] PM EST) WBC 15.5(H) 4.8 - 10.8 K/[facility] LAB HEMETOLOGY METHOD 08/27/2024 5:44 PM EST [facility] RBC 4.60 4.50 - 5.50 M/[facility] LAB HEMETOLOGY METHOD 08/27/2024 5:44 PM [facility] LAB HEMETOLOGY METHOD 08/27/2024 5:44 PM EST [facility] Eosinophils Relative 0.5 % LAB HEMETOLOGY METHOD 08/27/2024 5:44 PM EST [facility] Basophils Relative 0.4 % LAB HEMETOLOGY METHOD 08/27/2024 5:44 PM [facility] Immature Granulocytes Relative 1.0 % LAB HEMETOLOGY METHOD 08/27/2024 5:44 PM EST [facility] Neutrophils Absolute 12.31(H) 1.50 - 7.00 K/mcL LAB HEMETOLOGY METHOD 08/27/2024 5:44 PM EST [facility] Lymphocytes Absolute 1.97 1.00 - 5.00 K/mcL LAB HEMETOLOGY METHOD 08/27/2024 5:44 PM [facility] Monocytes Absolute 0.90 0.20 - 1.00 K/mcL LAB HEMETOLOGY METHOD 08/27/2024 5:44 PM EST [facility] Eosinophils Absolute 0.07 0.00 - 0.50 K/mcL LAB HEMETOLOGY METHOD 08/27/2024 5:44 PM EST [facility] Basophils Absolute 0.06 0.00 - 0.20 [...] DO LAB BLOOD ORDERABLES Milli l Result [facility] [address] [place] [address], * (ABNORMAL) Comprehensive metabolic panel (08/27/2024 5:21 [...] LAB CHEMISTRY METHOD 08/27/2024 6:08 PM EST [facility] Alkaline Phosphatase 68 42 - 121 unit/L LAB CHEMISTRY METHOD 08/27/2024 6:08 PM [facility] Total Protein 7.3 6.0 - 8.0 g/dL LAB CHEMISTRY METHOD 08/27/2024 6:08 PM EST [facility] Albumin 3.5 3.2 - 5.0 g/dL [...] DO LAB BLOOD ORDERABLES Milli l Result [facility] [address] [place] [address], [place] [phone] from Last 3 Months Care Teams Stacker Operator Relationship Specialty Start Date End Date Physician, No Pcp PCP - General 08/27/24
--- OUTSIDE RECORDS SUMMARY | 2024-10-12 11:55 | XMS_ITS | Encounter Summary ---
Author Organization [employer] [facility] Address [address] [facility] [address] h Floor [place] [id number] Care Team Providers Care Software Trainer Name Role Phone Bernadette Noguera MD Primary Care Provider + Encounter Details Date Type Department Care Team (Late st Contact Info) Description 03/22/2024 Orders Only [facility] [address] [place] [phone] Gerard Spence MD [address], [place] [phone] Social History Tobacco Use Types Packs/Day Years Used Date Smoking Tobacco: Never Smokeless Tobacco: Never Sex and Gender Information Value Date Recorded Sex Assigned at Male 06/29/2022 10:35 AM EDT Legal Sex Male 10:35 AM EDT Gender Identity Choose not to disclose 10:35 AM EDT Sexual Orientation Choose not to disclose 2021 10:35 AM EDT documented as of this encounter Miscellaneous Notes * Result Encounter Note - Bernadette Noguera MD - 03/22/2024 1:01 PM EDT Labs today were essentially normal, his calculated Fib 4 score is : 0.77 which puts him at lower risk of developing liver cirrhosis or hepatocellular CA. I will discuss issues with patient at next appointment. No need for additional evaluation at this time documented in this encounter Plan of Treatment Upcoming Encounters Date Type Department Care Team (Late st Contact Info) Description 10/12/2024 3:00 PM EST Office Visit [facility] [address] [place] [address] [phone] Umm Vaughan RN 10/13/2024 2:45 PM EST Office Visit [facility] [address] [place], [place] [phone] Moshe Dumont MD [address], [place] [phone] 11/29/2024 3:15 PM EDT Office Visit [facility] [address] [place] [phone] Bernadette Noguera MD [address], [place] [phone] documented as of this encounter Procedures Procedure Name Priority Date/Time Associated Diagnosis Comments TSH W/REFLEX TO FT4 Routine 10/11/2024 1 0:47 AM EST CBC WITH AUTO DIFFERENTIAL Routine 10/11/2024 10:47 AM EST HEPATITIS C AB W/REFL TO HCV RNA, QN, PCR Routine 10/11/2024 10:47 AM EST HEPATITIS B SURFACE ANTIGEN, EIA Routine 10/11/2024 10:47 AM EST HEPATITIS B CORE AB TOTAL Routine 10/11/2024 10:47 AM EST HIV 1/2 ANTIGEN/ANTIBODY, FOURTH GENERATION W/RFL Routine 10/11/2024 10:47 AM EST HEPATITIS B SURFACE ANTIBODY, QUALITATIVE Routine 10/11/2024 10:47 AM EST HEMOGLOBIN A1C Routine 10/11/2024 10:47 AM EST VITAMIN B12 Routine 10/11/2024 10:47 AM EST COMPREHENSIVE METABOLIC PANEL Routine 10/11/2024 10:47 AM EST SYPHILIS SCREEN Routine 03/21/2024 10:45 AM EDT HEPATITIS C VIRAL RNA, QUANTITATIVE, REAL-TIME PCR Routine 03/21/2024 10:45 AM EDT documented in this encounter Results * Hepatitis B Surface Antibody, Qualitative (10/11/2024 10:47 AM EST) ~Hepatitis B Surface Antibody GRAYZONE Nonreactive [facility] Comment:GRAYZONE: 8.00 mIU/m L TO 11.99 mIU/mLTHE IMMUNE STATUS OF THE INDIVIDUAL SHOULD BE FURTHERASSESSED BY CONSIDERING OTHER FACTORS, SUCH CLINICALSTATUS, FOLLOW-UP TESTING, ASSOCIATED RISK FACTORS, AND THEUSE OF ADDITIONAL DIAGNOSTIC INFORMATION. 10/11/2024 10:4 7 AM EST 10/11/2024 1:35 PM EST us Gerard Spence MD LAB BLOOD ORDERABLES Final Resul t Performing Organization Address [facility] Co de Phone Number [facility] [address] [place] [address] [phone] * Hepatitis B surface antigen, EIA (10/11/2024 10:47 AM EST) Pathologist [facility] Hepatitis B Surface Ag Negative Negative [facility] 10/11/2024 10:4 7 AM EST 10/11/2024 1:35 PM EST us Gerard Spence MD LAB BLOOD ORDERABLES Final Resul t Performing Organization Address [facility] Co de Phone Number [facility] [address] [place] [address] [phone] * HIV-1/2 Antigen and Antibodies, Fourth Generation, with Reflexes (10/11/2024 10:47 AM EST) Pathologist [facility] HIV AB/AG Nonreactive Nonreactive [facility] Comment:HIV-1 p24 Ag and/or HIV-1/HIV-2 Ab not detected.A test result that is nonreactive does not exclude thepossibility of exposure to or infection with HIV-1 and/orHIV-2. Nonreactive results in this assay for individualswith prior exposure to HIV-1 and/or HIV-2 may be due toantigen and antibody levels that are below the limit ofdetection of this assay.The [employer]orm[employer] HIV Ag/Ab Combo assay result andsupplemental assay results should be interpreted inconjunction with the patient's clinical presentation,history and other laboratory results. If the results areinconsistent with clinical evidence, additional testing issuggested to confirm the result. 10/11/2024 10:4 7 AM EST 10/11/2024 1:35 PM EST us Gerard Spence MD LAB BLOOD ORDERABLES Final Resul t Performing Organization Address [facility] Phone Number [facility] [address] [place] [address] [phone] * (ABNORMAL) Hepatitis C Antibody with Reflex to HCV, RNA, Quantitative, Real- Time PCR (10/11/2024 10:47 AM EST) Hepatitis C Antibody Reactive( A) Nonreactive [facility] Comment:Presumptive evidence of antibodies to HCV. 10/11/2024 10:4 7 AM EST 10/11/2024 1:35 PM EST us Gerard Spence MD LAB BLOOD ORDERABLES Final Resul t Performing Organization Address [facility] de Phone Number [facility] [address] [place] [address] [phone] * Hepatitis B Core Antibody, Total (10/11/2024 10:47 AM EST) Hepatitis B Core Antibody Nonreactive Nonreactive [facility] 10/11/2024 10:4 7 AM EST 10/11/2024 1:35 PM EST us Gerard Spence MD LAB BLOOD ORDERABLES Final Resul t Performing Organization Address [facility] Co de Phone Number [facility] [address] [place] [address] [phone] * TSH with Reflex to Free T4 (10/11/2024 10:47 AM EST) TSH reflex Free T4 2.54 0.32 - 4.0 uIU/mL [facility] 10/11/2024 10:4 7 AM EST 10/11/2024 1:35 PM EST us Gerard Spence MD LAB BLOOD ORDERABLES Final Resul t Performing Organization Address [facility] Co de Phone Number [facility] [address] [place] [address] [phone] * Vitamin B12 (10/11/2024 10:47 AM EST) Pathologist [facility] Vitamin B12 375 200 - 900 pg/mL [facility] Comment:NORMAL 200-900 PG/M L INDETERMINATE 160-199 PG/ML DEFICIENT < 160 PG/ML 10/11/2024 10:4 7 AM EST 10/11/2024 1:35 PM EST us Gerard Spence MD LAB BLOOD ORDERABLES Final Resul t Performing Organization Address [facility] Co de Phone Number [facility] [address] [place] [address] [phone] * (ABNORMAL) Comprehensive Metabolic Panel (10/11/2024 10:47 AM EST) Pathologist [facility] Sodium 137 135 - 145 mmol/L [facility] Potassium 4.3 3.3 - 5.1 mmol/L [facility] Chloride 107 96 - 108 mmol/L [facility] Carbon Dioxide 23 22 - 29 mmol/L [facility] Anion Gap 11(L) 12 - 20 [facility] Urea Nitrogen (BUN) 12 9 - 16 mg/dL [facility] Creatinine, Serum 0.77 0.5 - 1.4 mg/dL [facility] Estimated Glomerular Filt Rate >60 [facility] Comment:Chronic Kidney Disea se: Estimated GFR < 60 mL/min/1.99a7Dtaywy Kidney Disease: Estimated GFR < 15 mL/min/1.73m2 Glucose 113 60 - 115 mg/dL [facility] Calcium 9.0 8.4 - 10.2 mg/dL [facility] Bilirubin, Total 0.3 0.0 - 1.0 mg/dL [facility] Aspartate Amino Transferase 28 5 - 37 U/L [facility] Alanine Aminotransferase 28 0 - 40 U/L [facility] Total Protein 7.6 6.5 - 8.0 g/dL [facility] Albumin Level 4.1 3.5 - 5.0 g/dL [facility] Alkaline Phosphatase 65 39 - 117 U/L [facility] 10/11/2024 10:4 7 AM EST 10/11/2024 1:35 PM EST us Gerard Spence MD LAB BLOOD ORDERABLES Final Resul t Performing Organization Address [facility] de Phone Number [facility] [address] [place] [address] [phone] * Hemoglobin A1c (10/11/2024 10:47 AM EST) Hemoglobin A1c 5.7 <6.0 % [facility] Comment:Hemoglobin A1C Refer ence Range Adults: 4.8 - 6.0 % Non diabetic: < 6.0 % Goal: < 7.0 %Additional Action Suggested: > 8.0 %Note: Hemoglobin A1c results are invalid for patients with abnormal amounts of HbF. Blood transfusions may impact the HbA1c concentration in the patient sample. Estimated Average Glucose 117 mg/dL [facility] Comment:eAG = Estimated ave rage glucose which is %A1C expressed asaverage glucose, using the formula of the [id number] Glucose study (ADAG), Diabetes Care, Vol.31,#8,Mar. 2007 10/11/2024 10:4 7 AM EST 10/11/2024 1:35 PM EST us Gerard Spence MD LAB BLOOD ORDERABLES Final Resul t Performing Organization Address [facility] de Phone Number [facility] [address] [place] [address] [phone] * CBC auto differential (10/11/2024 10:47 AM EST) White Blood Count 5.5 4.8 - 10.8 X10*3/uL [facility] Red Blood Count 4.83 4.60 - 5.80 X10*6/uL [facility] Hemoglobin 14.3 14.0 - 18.0 g/dl [facility] Hematocrit 42.2 42.0 - 52.0 % [facility] Mean Corpuscular Volume 87.4 80.0 - 98.0 fL [facility] Mean Corpuscular Hemoglobin 29.6 27.0 - 33.0 pg [facility] Mean Corpuscular HGB Conc 33.9 31.0 - 36.0 g/dl [facility] Red Cell Distribution Width 13.0 11.0 - 16.0 % [facility] Platelet Count 262 160 - 400 X10*3/uL [facility] Mean Platelet Volume 10.4 9.4 - 12.4 fL [facility] Neutrophils Percent Auto 51.8 45 - 73 % [facility] Imm Gran Pct Auto 0.4 0.0 - 0.4 % [facility] Lymphocytes Percent Auto 34.3 20 - 40 % [facility] Monocytes Percent Auto 9.7 2 - 11 % [facility] Eosinophils Percent Auto 2.9 0 - 4 % [facility] Basophils Percent Auto 0.9 0 - 2 % [facility] NRBC Pct Auto 0.0 0.0 - 0.2 /100WBC [facility] Neutrophils Absolute Auto 2.8 2.0 - 8.3 x10*3/uL [facility] Imm Gran Abs Auto 0.02 0.00 - 0.03 X10*3/uL [facility] Lymphocytes Absolute Auto 1.9 1.2 - 4.9 X10*3/uL [facility] Monocytes Absolute Auto 0.5 0.1 - 1.2 X10*3/uL [facility] Eosinophils Absolute Auto 0.2 0.0 - 0.4 X10*3/uL [facility] Basophils Absolute Auto 0.1 0.0 - 0.2 X10*3/uL [facility] NRBC Abs Auto 0.000 0.0 - 0.012 X10*3/uL [facility] 10/11/2024 10:4 7 AM EST 10/11/2024 1:35 PM EST us Gerard Spence MD LAB BLOOD ORDERABLES Final Resul t Performing Organization Address [facility] de Phone Number [facility] [address] [place] [address] [phone] * Hepatitis C Viral RNA, Quantitative, Real-Time PCR (03/21/2024 10:45 AM EDT) Pathologist [facility] Hepatitis C Viral Load <15 NOT DETECTED NOT DETECTED IU/mL [facility] HCV Log PCR <1.18 NOT DETECTED NOT DETECTED Log IU/mL [facility] Comment:For additional infor mation, please refer [email or web address]/[email or web address](This link is being provided for informational/educational purposes only.)THIS TEST WAS PERFORMED AT:[facility] [place] [id number] BETHEA MD 03/21/2024 10:4 5 AM EDT 03/21/2024 11:20 AM EDT us Gerard Spence MD LAB BLOOD ORDERABLES Final Resul t Performing Organization Address [facility] Co de Phone Number [facility] [address] [place] [address] [phone] * Syphilis Screen (03/21/2024 10:45 AM EDT) Pathologist [facility] Syphilis Screen Nonreactive Nonreactive [facility] 03/21/2024 10:4 5 AM EDT 03/21/2024 11:20 AM EDT us Gerard Spence MD LAB BLOOD ORDERABLES Final Resul t [facility] [address] [place] [phone] documented in this encounter Visit Diagnoses Not on filedocumented in this encounter Care Teams Software Trainer Relationship Specialty Start Date End Date Bernadette Noguera MD [address] [place] [phone] PCP - General Internal Medicine 10/11/24 documented as of this encounter
--- OUTSIDE RECORDS SUMMARY | 2024-10-12 11:55 | XMS_ITS | Encounter Summary ---
Author Organization [email or web address] Address [address] [facility] [address] h [address] [place] [phone] Care Team Providers Care Rn Ccu Name Role Phone Bernadette Noguera MD Primary Care Provider + Reason for Visit * Reason Comments Med Change Request Encounter Details Date Type Department Care Team (Late st Contact Info) Description 03/21/2024 Refill [facility] [address] [place] [phone] Gerard Spence MD [address] [place] [phone] Social History Tobacco Use Types Packs/Day Years [...] AM EDT Discontinued by Provider- sent to [facility] documented in this encounter Plan of Treatment Upcoming Encounters Date Type Department Care Team (Late st Contact Info) Description 10/12/2024 3:00 PM EST Office Visit [facility] [address] [place] [address] [phone] Umm Vaughan RN 10/13/2024 2:45 PM EST Office Visit [facility] [address] [place] [address] [phone] Moshe Dumont MD [address] [place], [place] [phone] 11/29/2024 3:15 PM EDT Office Visit [facility] [address] [place] [address] [phone] Bernadette Noguera MD [address] [place] [address] [phone] documented as of this encounter Visit Diagnoses Not on filedocumented in this encounter Care Teams Rn Ccu Relationship Specialty Start Date End Date Bernadette Noguera MD [address] [place] [address] [phone] PCP - General Internal Medicine 10/11/24 documented as of this encounter
--- OUTSIDE RECORDS SUMMARY | 2024-10-12 11:55 | XMS_ITS | Clinical Summary ---
Author Organization [employer] Address [address] [facility] [address] [place] [address] Care Team Providers Care Supervisor [employer] Name Role Phone Bernadette Noguera MD Primary [...] Date History of hepatitis C virus infection Assessment & Plan (10/11/2024 12:35 PM EST): Will repeat viral load due to patient's current risk factors. Advised to cut down on EtOH and rec substances. FU in 6 months. Elevated blood pressure reading 10/11/2024 Uncomplicated opioid dependence 10/11/2024 Assessment & Plan (10/11/2024 12:39 PM EST): Currently uses Oxycodone. We discussed on cutting down use. He agreed to be referred to rn recovery, not ready to start Suboxone program. Class 1 obesity due to exces s calories without serious comorbidity with body mass index (BMI) of 34.0 to 34.9 in adult 10/11/2024 Assessment & Plan (10/11/2024 12:40 PM EST): Discussed re weight reduction options including exercise, life style modifications, diet. Recommended to decrease soda and sugary beverage consumption, increase protein intake with meals (at least 1 portion of protein with each meal) to assist with satiety, increase dietary fiber Recommended at least 150 min/week of moderate intensity exercise. Hepatitis C antibody test positive 03/21/2024 History of intravenous drug use 03/21/2024 Encounters Date Type Department Care Team Description 10/11/2024 9:30 AM EST Office Visit [address] [address] Bernadette Noguera MD History of hepatitis C virus infection (Primary Dx); Uncomplicated opioid dependence (CMS/HCC); Elevated blood pressure reading; Class 1 obesity due to excess calories without serious comorbidity with body mass index (BMI) of 34.0 to 34.9 in adult; Dietary counseling; Exercise counseling 10/11/2024 Patient Outreach [address] [address] Amaury Corado Recovery Supports 10/11/2024 Travel 10/10/[address] [address] Yonas Le MD 10/09/[address] [address] Sherin Baxter MA Chart prep 09/28/2024 Patient Outreach [address] [address] Bernadette Noguera MD Pre-visit Planning (SDOH screening negative and tobacco screening negative) 08/21/[address] [address] Bernadette Noguera MD New pt appt from [...] Description 10/12/2024 3:00 PM EST Office Visit [facility] [address] [place] [phone] Umm Vaughan RN 10/13/2024 2:45 PM EST Office Visit [facility] [address] [place] [phone] Moshe Dumont MD [address] [place] [phone] 11/29/2024 3:15 PM EDT Office Visit [facility] [address] [place], [place] [phone] Bernadette Noguera MD [address] [place], [place] [phone] Health Maintenance Due Date Last Done Comments Family Planning (PISQ) 2001 DTaP/Tdap/Td Vaccines (1 - Tdap) 2005 Hepatitis A Vaccines (1 of 2 - Risk 2-dose series) 2005 Hepatitis B Vaccines (1 of 3 - 19+ 3-dose series) 2005 COVID-19 Vaccine ( - 2023-2 5 season) 2024 Influenza Vaccine (#1) 2024 SDOH Screening 09/28/2025 09/28/2024 Alcohol/Substance Use Screening 10/11/2025 10/11/2024 Depression Screening 10/11/2025 10/11/2024, 10/11/2024 Diabetes: Hemoglobin A1C 10/11/2025 025, 03/21/2024 Tobacco Screening 10/11/2025 10/11/2024 Lipid Panel 10/11/2029 10/11/2024 Zoster Vaccines (1 of 2) 2036 RSV Patients and Patients Aged 60 years or older (1 - 1-dose 75+ series) 2061 HIV Screening Completed 10/11/2024, 03/21/2024 HIB Vaccines Aged Out No longer [...] Procedure Name Priority Date/Time Associated Diagnosis Comments HEPATITIS B SURFACE ANTIBODY, QUALITATIVE Routine 10/11/2024 10:47 AM EST HEPATITIS B SURFACE ANTIGEN, EIA Routine 10/11/2024 10:47 AM EST HIV 1/2 ANTIGEN/ANTIBODY, FOURTH GENERATION W/RFL Routine 10/11/2024 10:47 AM EST HEPATITIS C AB W/REFL TO HCV RNA, QN, PCR Routine 10/11/2024 10:47 AM EST HEPATITIS B CORE AB TOTAL Routine 10/11/2024 10:47 AM EST TSH W/REFLEX TO FT4 Routine 10/11/2024 1 0:47 AM EST VITAMIN B12 Routine 10/11/2024 10:47 AM EST COMPREHENSIVE METABOLIC PANEL Routine 10/11/2024 10:47 AM EST HEMOGLOBIN A1C Routine 10/11/2024 10:47 AM EST CBC WITH AUTO DIFFERENTIAL Routine 10/11/2024 10:47 AM EST LIPID PANEL WITH REFLEX TO DIRECT LDL Routine 10/11/2024 10:47 AM EST Class 1 obesity due to excess calories without serious comorbidity with body mass index (BMI) of 34.0 to 34.9 in adult from Last 3 Months Results * TSH with Reflex to Free T4 (10/11/2024 10:47 AM EST) TSH reflex Free T4 2.54 0.32 - 4.0 uIU/mL [facility] 10/11/2024 10:4 7 AM EST 10/11/2024 1:35 PM EST us Gerard Spence MD LAB BLOOD ORDERABLES Final Resul t [facility] [address] [place] [address] [phone] * (ABNORMAL) Lipid Panel with Reflex to Direct LDL (10/11/2024 10:47 AM EST) Triglycerides 186(H) <150 mg/dL [facility] Comment:Desirable Triglyceri de: less than 150 mg/dLBorderline High Triglyceride 150-199 mg/dLHigh Triglyceride: 200-499 mg/dLVery High Triglyceride: greater than or equal to 5OO mg/dL Cholesterol 265(H) <200 mg/dL [facility] Comment:Desirable Cholestero l: less than 200 mg/dLBorderline High Cholesterol: 200-239 mg/dLHigh Cholesterol: greater than 239 mg/dL LDL Cholesterol Calculated 165(H) <100 mg/dL [facility] Comment:Desirable LDL: less than 100 mg/dLNear Optimal/Above Optimal LDL: 110- 129 mg/dLBorderline High LDL: 130-159 mg/dLHigh LDL: 160-189 mg/dLVery High LDL: greater than or equal to 190 mg/dL HDL Cholesterol 63 >40 mg/dL [facility] Comment:Desirable HDL: great er than 40 mg/dL Note: This HDL assay may give artificially low results in patients with liver disease. Blood 10/11/2024 10:4 7 AM EST 10/11/2024 1:35 PM EST Bernadette Noguera MD LAB BLOOD ORDERABLES Fin al Result [facility] [address] [place] [address] [phone] * CBC auto differential (10/11/2024 10:47 AM EST) White Blood Count 5.5 4.8 - 10.8 X10*3/uL [facility] Red Blood Count 4.83 4.60 - 5.80 X10*6/uL [facility] Hemoglobin 14.3 14.0 - 18.0 g/dl [facility] Hematocrit 42.2 42.0 - 52.0 % [facility] Mean Corpuscular Volume 87.4 80.0 - 98.0 fL [facility] Mean Corpuscular Hemoglobin 29.6 27.0 - 33.0 pg [facility] Mean Corpuscular HGB Conc 33.9 31.0 - 36.0 g/dl [facility] Red Cell Distribution Width 13.0 11.0 - 16.0 % [facility] Platelet Count 262 160 - 400 X10*3/uL [facility] Mean Platelet Volume 10.4 9.4 - 12.4 fL [facility] Neutrophils Percent Auto 51.8 45 - 73 % [facility] Imm Gran Pct Auto 0.4 0.0 - 0.4 % [facility] Lymphocytes Percent Auto 34.3 20 - 40 % [facility] Monocytes Percent Auto 9.7 2 - 11 % [facility] Eosinophils Percent Auto 2.9 0 - 4 % [facility] Basophils Percent Auto 0.9 0 - 2 % [facility] NRBC Pct Auto 0.0 0.0 - 0.2 /100WBC [facility] Neutrophils Absolute Auto 2.8 2.0 - 8.3 x10*3/uL [facility] Imm Gran Abs Auto 0.02 0.00 - 0.03 X10*3/uL [facility] Lymphocytes Absolute Auto 1.9 1.2 - 4.9 X10*3/uL [facility] Monocytes Absolute Auto 0.5 0.1 - 1.2 X10*3/uL [facility] Eosinophils Absolute Auto 0.2 0.0 - 0.4 X10*3/uL [facility] Basophils Absolute Auto 0.1 0.0 - 0.2 X10*3/uL [facility] NRBC Abs Auto 0.000 0.0 - 0.012 X10*3/uL [facility] 10/11/2024 10:4 7 AM EST 10/11/2024 1:35 PM EST us Gerard Spence MD LAB BLOOD ORDERABLES Final Resul t Performing Organization Address [facility] Co de Phone Number [facility] [address] [place] [phone] * (ABNORMAL) Hepatitis C Antibody with Reflex to HCV, RNA, Quantitative, Real- Time PCR (10/11/2024 10:47 AM EST) Hepatitis C Antibody Reactive( A) Nonreactive [facility] Comment:Presumptive evidence of antibodies to HCV. 10/11/2024 10:4 7 AM EST 10/11/2024 1:35 PM EST us Gerard Spence MD LAB BLOOD ORDERABLES Final Resul t Performing Organization Address [facility] Co de Phone Number [facility] [address] [place] [phone] * Hepatitis B surface antigen, EIA (10/11/2024 10:47 AM EST) Hepatitis B Surface Ag Negative Negative [facility] 10/11/2024 10:4 7 AM EST 10/11/2024 1:35 PM EST us Gerard Spence MD LAB BLOOD ORDERABLES Final Resul t Performing Organization Address [facility] Co de Phone Number [facility] [address] [place] [phone] * Hepatitis B Core Antibody, Total (10/11/2024 10:47 AM EST) Hepatitis B Core Antibody Nonreactive Nonreactive [facility] 10/11/2024 10:4 7 AM EST 10/11/2024 1:35 PM EST us Gerard Spence MD LAB BLOOD ORDERABLES Final Resul t Performing Organization Address [facility] Co de Phone Number [facility] [address] [place] [phone] * HIV-1/2 Antigen and Antibodies, Fourth Generation, with Reflexes (10/11/2024 10:47 AM EST) HIV AB/AG Nonreactive Nonreactive [facility] Comment:HIV-1 p24 Ag and/or HIV-1/HIV-2 Ab not detected.A test result that is nonreactive does not exclude thepossibility of exposure to or infection with HIV-1 and/orHIV-2. Nonreactive results in this assay for individualswith prior exposure to HIV-1 and/or HIV-2 may be due toantigen and antibody levels that are below the limit ofdetection of this assay.The Big Stage HIV Ag/Ab Combo assay result andsupplemental assay results should be interpreted inconjunction with the patient's clinical presentation,history and other laboratory results. If the results areinconsistent with clinical evidence, additional testing issuggested to confirm the result. 10/11/2024 10:4 7 AM EST 10/11/2024 1:35 PM EST us Gerard Spence MD LAB BLOOD ORDERABLES Final Resul t Performing Organization Address [facility] Co de Phone Number [facility] [address] [place] [address] [phone] * Hepatitis B Surface Antibody, Qualitative (10/11/2024 10:47 AM EST) ~Hepatitis B Surface Antibody GRAYZONE Nonreactive [facility] Comment:GRAYZONE: 8.00 mIU/m L TO 11.99 mIU/mLTHE IMMUNE STATUS OF THE INDIVIDUAL SHOULD BE FURTHERASSESSED BY CONSIDERING OTHER FACTORS, SUCH CLINICALSTATUS, FOLLOW-UP TESTING, ASSOCIATED RISK FACTORS, AND THEUSE OF ADDITIONAL DIAGNOSTIC INFORMATION. 10/11/2024 10:4 7 AM EST 10/11/2024 1:35 PM EST us Gerard Spence MD LAB BLOOD ORDERABLES Final Resul t Performing Organization Address City/[facility] Co de Phone Number [facility] [address] [place] [phone] * Hemoglobin A1c (10/11/2024 10:47 AM EST) Hemoglobin A1c 5.7 <6.0 % [facility] Comment:Hemoglobin A1C Refer ence Range Adults: 4.8 - 6.0 % Non diabetic: < 6.0 % Goal: < 7.0 %Additional Action Suggested: > 8.0 %Note: Hemoglobin A1c results are invalid for patients with abnormal amounts of HbF. Blood transfusions may impact the HbA1c concentration in the patient sample. Estimated Average Glucose 117 mg/dL [facility] Comment:eAG = Estimated ave rage glucose which is %A1C expressed asaverage glucose, using the formula of the [id number] Glucose study (ADAG), Diabetes Care, Vol.31,#8,Mar. 2007 10/11/2024 10:4 7 AM EST 10/11/2024 1:35 PM EST us Gerard Spence MD LAB BLOOD ORDERABLES Final Resul t [facility] [address] [place] [phone] * Vitamin B12 (10/11/2024 10:47 AM EST) Vitamin B12 375 200 - 900 pg/mL [facility] Comment:NORMAL 200-900 PG/ML INDETERMINATE 160-199 PG/ML DEFICIENT < 160 PG/ML 10/11/2024 10:4 7 AM EST 10/11/2024 1:35 PM EST us Gerard Spence MD LAB BLOOD ORDERABLES Final Resul t Performing Organization Address City/[facility]/ZIP Co de Phone Number [facility] [address] [place] [phone] * (ABNORMAL) Comprehensive Metabolic Panel (10/11/2024 10:47 AM EST) Sodium 137 135 - 145 mmol/L [facility] Potassium 4.3 3.3 - 5.1 mmol/L [facility] Chloride 107 96 - 108 mmol/L [facility] Carbon Dioxide 23 22 - 29 mmol/L [facility] Anion Gap 11(L) 12 - 20 [facility] Urea Nitrogen (BUN) 12 9 - 16 mg/dL [facility] Creatinine, Serum 0.77 0.5 - 1.4 mg/dL [facility] Estimated Glomerular Filt Rate >60 [facility] Comment:Chronic Kidney Disea se: Estimated GFR < 60 mL/min/[id number] Kidney Disease: Estimated GFR < 15 mL/min/1.73m2 Glucose 113 60 - 115 mg/dL [facility] Calcium 9.0 8.4 - 10.2 mg/dL [facility] Bilirubin, Total 0.3 0.0 - 1.0 mg/dL [facility] Aspartate Amino Transferase 28 5 - 37 U/L [facility] Alanine Aminotransferase 28 0 - 40 U/L [facility] Total Protein 7.6 6.5 - 8.0 g/dL [facility] Albumin Level 4.1 3.5 - 5.0 g/dL [facility] Alkaline Phosphatase 65 39 - 117 U/L [facility] 10/11/2024 10:4 7 AM EST 10/11/2024 1:35 PM EST us Gerard Spence MD LAB BLOOD ORDERABLES Final Resul t Performing Organization Address City/State/[facility] Co de Phone Number [facility] [address] [place] [address] [phone] from Last [address] [place] [address] C3 Care Teams Supervisor [employer] Relationship Specialty Start Date End Date Bernadette Noguera MD [address] [place] [phone] PCP - General Internal Medicine 10/11/24
--- OUTSIDE RECORDS SUMMARY | 2024-10-12 11:55 | XMS_ITS | Encounter Summary ---
Author Organization [employer] Address [address] [facility] [address] [place] [address] Care Team Providers Care Hospice/Home Health Aide Name Role Phone Unavailable Primary Care Provider Unavailabl e Reason for Visit * Reason Onset Date Comments Chart prep 10/09/2024 Encounter Details Date Type Department Care Team (Late st Contact Info) Description 10/09/2024 Telephone [facility] [address] [place] [address] Sherin Baxter MA Chart prep Social History [...] Description 10/12/2024 3:00 PM EST Office Visit [facility] [address] [place] [phone] Umm Vaughan RN 10/13/2024 2:45 PM EST Office Visit [address] [address] Moshe Dumont MD [address] [place] [phone] 11/29/2024 3:15 PM EDT Office Visit [address] [address] Bernadette Noguera MD [address] [place] [phone] documented as of this encounter Visit Diagnoses Not on filedocumented in this encounter
--- OUTSIDE RECORDS SUMMARY | 2024-10-12 11:55 | XMS_ITS | Encounter Summary ---
Author Organization [employer] [facility] Address [address] [facility] [address] [place] [phone] Care Team Providers Care It Senior Software Engineer [employer] Name Role Phone Bernadette Noguera MD Primary Care Provider + Encounter Details Date Type Department Care Team (Latest Contact Info) Description 05/07/2022 Abstract [facility] Dental, Provider, DDS Social History Tobacco [...] Description 10/12/2024 3:00 PM EST Office Visit [address] [address] Umm Vaughan RN 10/13/2024 2:45 PM EST Office Visit [address] [address] Moshe Dumont MD [address] [place] [phone] 11/29/2024 3:15 PM EDT Office Visit [address] [address] Bernadette Noguera MD [address] [place] [phone] documented as of this encounter Visit Diagnoses Not on filedocumented in this encounter Care Teams It Senior Software Engineer Java Relationship Specialty Start Date End Date Bernadette Noguera MD [address] [place] [phone] PCP - General Internal Medicine 10/11/24 documented as of this encounter
--- OUTSIDE RECORDS SUMMARY | 2024-10-12 11:55 | XMS_ITS | Encounter Summary ---
Author Organization [employer] Address [address] [facility] [address] [address] [place] [address] Care Team Providers Care K9 Handler Name Role Phone Bernadette Noguera MD Primary [...] t he electric, gas, oil or water [employer] threatened to shut off services in your [...] Description 10/12/2024 3:00 PM EST Office Visit [facility] [address] [place] [phone] Umm Vaughan RN 10/13/2024 2:45 PM EST Office Visit [address] [address] Moshe Dumont MD [address] [place] [phone] 11/29/2024 3:15 PM EDT Office Visit [address] [address] Bernadette Noguera MD [address] [place] [phone] documented as of this encounter Visit Diagnoses Not on filedocumented in this encounter Care Teams K9 Handler Relationship Specialty Start Date End Date Bernadette Noguera MD [address] [place] [phone] PCP - General Internal Medicine 10/11/24 documented as of this encounter
== END 2024-10-12 11:17 | disposition home or self-care (01) ==
LOC: HO.HHCLNP 11:16
PROVIDERS: Visit Provider Emergency Medicine
DX: R76.8 Other specified abnormal immunological findings in serum (principal)
CPT/HCPCS: 87338